=== PATIENT | female | born 1975 | race Caucasian/White ===

== ENCOUNTER 2016-04-25 07:00 | Emergency (ER) | payer OTHER ==
[2016-04-25] MEDS ORDERED: traMADol 50 MG TAB As Ordered ONE (07:33)
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
== END 2016-04-25 08:58 | disposition home or self-care (01) ==
LOC: M ED 07:00
DX: S16.1XXA Strain of muscle, fascia and tendon at neck level, initial encounter (principal); V49.59XA Passenger injured in collision with other motor vehicles in traffic accident, initial encounter; Y92.410 Unspecified street and highway as the place of occurrence of the external cause; Y93.89 Activity, other specified; Y99.8 Other external cause status; R51 Headache; M47.812 Spondylosis without myelopathy or radiculopathy, cervical region; F17.210 Nicotine dependence, cigarettes, uncomplicated

== ENCOUNTER → 2024-10-17 | Outpatient (CLI) | payer OTHER | LOC: M RAD 10:23 | DX: F17.210 Nicotine dependence, cigarettes, uncomplicated (principal); J98.11 Atelectasis ==

== ENCOUNTER → 2024-12-07 | Outpatient (CLI) | payer OTHER ==
[~2024-12-07] MED LIST: ISOVUE-300 61% 100 ML VIAL As Ordered ONE; LIDOCAINE 1% MDV 20 ML VIAL As Ordered ONE; methylPREDNISolone SUSP 40 MG/ML 1 ML VIAL As Ordered ONE
== END ==
LOC: M RAD 13:21
PROVIDERS: ATTEND Physician Assistant Surgical
DX: M16.11 Unilateral primary osteoarthritis, right hip (principal)
CPT/HCPCS: 20610; 77002; J1010; Q9967